=== PATIENT | female | born 1965 | race Hispanic/Latino ===

== ENCOUNTER 2020-01-17 13:35 | Emergency (ER) | payer MEDICAID ==
[2020-01-17 14:13] LABS: BASOPHILS % (AUTO) 0.7 % (0.0-5.0); EOSINOPHILS % (AUTO) 4.5 % (0.0-8.0); HEMATOCRIT 39.4 % (36-48); LYMPHOCYTES % (AUTO) 18.8 % (21.0-51.0); MEAN CORPUSCULAR HEMOGLOBIN 26.9 pg (27.0-33.0); MEAN CORPUSCULAR HGB CONC 32.5 g/dL (32.0-36.0); MEAN CORPUSCULAR VOLUME 82.9 fL (79-99); MONOCYTES % (AUTO) 9.6 % (3.0-13.0); NEUTROPHILS % (AUTO) 66.2 % (40.0-77.0); PLATELET COUNT (AUTO) 300 K/uL (130-400); RED BLOOD CELL COUNT(AUTO) 4.75 MIL/uL (4.00-5.50); RED CELL DISTRIBUTION WIDTH 13.2 % (11.0-15.5); WHITE BLOOD COUNT (AUTO) 8.3 K/uL (4.8-10.8)
[2020-01-17 14:32] LABS: INR 0.94 (0.85-1.15); PARTIAL THROMBOPLASTIN TIME 24.1 SEC (26.3-35.5); PROTHROMBIN TIME 9.9 SEC (9.6-11.6)
[2020-01-17 14:38] LABS: CREATININE 0.5 mg/dL (0.5-1.5); POTASSIUM 4.6 mmol/L (3.5-5.1)
[2020-01-17 14:43] LABS: B-TYPE NATRIURETIC PEPTIDE 33 pg/mL (0-100)
[2020-01-17 14:44] LABS: ALBUMIN 3.5 g/dL (3.5-5.0); BILIRUBIN,TOTAL 0.7 mg/dL (0.2-1.0); TOTAL PROTEIN, SERUM 7.5 g/dL (6.0-8.3)
[2020-01-17 14:58] LABS: APPEARANCE,URINE Cloudy (CLEAR); BILIRUBIN,URINE Negative (NEGATIVE); COLOR,URINE Yellow (YELLOW); GLUCOSE, URINE (UA) 500 mg/dL (NEGATIVE); KETONES,URINE Negative (NEGATIVE); LEUKOCYTE ESTERASE ,URINE Large (NEGATIVE); NITRATE,URINE Negative (NEGATIVE); OCCULT BLOOD,URINE Negative (NEGATIVE); PH,URINE 5.5 (5.0-8.0); PROTEIN,URINE Negative (NEGATIVE)
[2020-01-17 15:07] LABS: AMPHET/METH SCREEN,URINE NEGATIVE (NEGATIVE); BARBITURATE SCREEN, URINE NEGATIVE (NEGATIVE); BENZODIAZEPINES SCREEN,URINE NEGATIVE (NEGATIVE); CANNABINOID SCREEN,URINE NEGATIVE (NEGATIVE); COCAINE SCREEN,URINE NEGATIVE (NEGATIVE); OPIATE SCREEN,URINE NEGATIVE (NEGATIVE); PHENCYCLIDINE SCREEN,URINE NEGATIVE (NEGATIVE)
[2020-01-17 15:44] LABS: RBC,URINE 0-1 /HPF (0-1)
[2020-01-17 15:45] LABS: BACTERIA,URINE Moderate /HPF (None Seen); SQUAMOUS EPITHELIAL CELL,UR Few /HPF (0-2)
[2020-01-17] MEDS ORDERED: DIPHENHYDRAMINE HCL 25 MG CAPSULE ONE (16:45)
[2020-01-17] MEDS ORDERED: NAPROXEN 500 MG TABLET ONE (16:45)
[2020-01-17] MEDS ORDERED: GUAIFENESIN-DM 200/20 MG 10 ML ONE (16:45)
== END 2020-01-17 17:06 | disposition home or self-care (01) ==
LOC: EDH 13:35
DX: S80.11XA Contusion of right lower leg, initial encounter (principal); S09.90XA Unspecified injury of head, initial encounter; J01.80 Other acute sinusitis; I10 Essential (primary) hypertension; J45.909 Unspecified asthma, uncomplicated; Z98.890 Other specified postprocedural states; Z88.6 Allergy status to analgesic agent; W18.00XA Striking against unspecified object with subsequent fall, initial encounter; Y93.89 Activity, other specified; Y92.89 Other specified places as the place of occurrence of the external cause; Y99.8 Other external cause status
CPT/HCPCS: 36415; 70450; 73030; 73080; 73110; 73590; 80053; 80305; 81001; 82550; 83880; 84484; 85025; 85610; 85730; 93005; 99285; Q0163

== ENCOUNTER 2021-12-24 17:01 | Emergency (ER) | payer MEDICAID ==
[~2021-12-24] VITALS: Ht 160 cm; Wt 107.5 kg
[2021-12-24 17:06] VITALS: BP 139/73
[2021-12-24] MEDS ORDERED: FLUORESCEIN SODIUM 1 STRIP STRIP ONE (17:44)
[2021-12-24] MEDS ORDERED: TETRACAINE HCL 0.5% 4 ML OPHTH SOLN ONE (17:45)
[2021-12-24] MEDS ORDERED: TETRACAINE HCL 0.5% 4 ML OPHTH SOLN OP SCH (18:00)
[2021-12-24] MEDS ORDERED: NEO/5DRO4 OP (18:05)
[2021-12-24] MEDS ORDERED: TETANUS/DIPHTHERIA TOXOID [ADULT] 0.5 ML VIAL IM ONE ×2 (18:15→18:30)
== END 2021-12-24 18:53 | disposition home or self-care (01) ==
LOC: EDH 17:01
DX: S05.02XA Injury of conjunctiva and corneal abrasion without foreign body, left eye, initial encounter (principal); I10 Essential (primary) hypertension; Z88.5 Allergy status to narcotic agent; E78.00 Pure hypercholesterolemia, unspecified; Z90.49 Acquired absence of other specified parts of digestive tract; X58.XXXA Exposure to other specified factors, initial encounter; Y93.89 Activity, other specified; Y92.89 Other specified places as the place of occurrence of the external cause; Y99.8 Other external cause status
CPT/HCPCS: 90471; 90714

== ENCOUNTER → 2025-01-14 | Outpatient (CLI) | payer MEDICAID ==
[~2025-01-14] MED LIST: NEO/5DRO4 OP
[2025-01-14 12:26] LABS: ALBUMIN 3.5 g/dL (3.5-5.0); BILIRUBIN,TOTAL 0.7 mg/dL (0.2-1.0); CREATININE 0.5 mg/dL (0.5-1.0); POTASSIUM 4.6 mmol/L (3.5-5.1); TOTAL PROTEIN, SERUM 6.8 g/dL (6.0-8.3)
== END | disposition home or self-care (01) ==
LOC: LAB 09:16
PROVIDERS: ATTEND Student in an Organized Health Care Education/Training Program
DX: E78.2 Mixed hyperlipidemia (principal); Z82.49 Family history of ischemic heart disease and other diseases of the circulatory system
CPT/HCPCS: 36415; 80053; 80061

== ENCOUNTER 2025-08-04 17:20 | Inpatient (IN) | payer MEDICAID ==
[~2025-08-04] VITALS: Ht 160 cm; Wt 97.9 kg
[2025-08-04 18:09] LABS: IMMATURE GRANULOCYTE ABSOLUTE 0.01 K/uL (0-1); NUCLEATED RED BLOOD CELLS 0.0 % (0.0-0.19); PLATELET COUNT (AUTO) 259 K/uL (130-400); RED BLOOD CELL COUNT(AUTO) 4.30 MIL/uL (4.00-5.50); RED CELL DISTRIBUTION WIDTH 13.2 % (11.0-15.5); WHITE BLOOD COUNT (AUTO) 6.1 K/uL (4.8-10.8)
--- NOTE | 2025-08-04 18:20 | ERN ---
ED Note History of Present Illness Stated Complaint: CP, N/V Chief Complaint: Chest Pain Time Seen by MD: 17:29 Time Seen by Midlevel: 17:29 Dictation: The patient is a 59-year-old female with a history of hypertension, CAD, diabetes who presents to the emergency department with complaints of chest pressure onset Saturday. Patient reports that she was exacerbated by going up the stairs carrying some toilet paper pack when she develop severe chest pain associated with diaphoresis, nausea and vomiting. Patient reports that since then she has been having the chest pressure which has been constant. Reports that she is scheduled to get a cardiac stent with Dr. Salomon kitchen on Saturday. Patient reports she has 80-90% stenosis to LAD Allergies: Coded Allergies: codeine (Unverified Allergy, Unknown, 12/24/21) Home Meds Active Scripts Gorge/Polymyx B Sulf/Dexameth (Maxitrol Eye Drops) 5 Ml Drops.susp, 5 ML OP TID for 5 Days, #30 DROP Prov:BOOGIE KAUR MD 12/24/21 Past Medical History Past Medical History: Asthma, High Cholesterol, Heart Disease, Hypertension Surgical History: Hysterectomy, Cholecystectomy, Surgical History Other: BILATERAL EYES, HERNIA, BACK RN Note Reviewed/Agreed w/PFSH: Yes Review of System Dictation Constitutional: Negative for fever,chills, and weight loss Eyes: Negative for injury, pain,redness, and discharge ENT: Negative for injury,pain or swelling Cardiovascular: Negative for palpitations, and edema positive for chest pain Respiratory: Negative for shortness of breath, cough, and wheezing, Abdomen/GI: Negative for abdominal pain,, diarrhea, and constipation positive for nausea and vomiting Back: Negative for injury and pain : Negative for injury, bleeding and discharge MS/Extremity: Negative for injury and deformity Skin: Negative for rash, and discoloration Neuro: Negative for headache, weakness, numbness, tingling, and seizure Psych: Negative for suicide ideation, homicidal ideation, and hallucinations Initial Vital Sign VS Vital Signs Date Time Temp Pulse Resp B/P (MAP) Pulse Ox O2 Delivery O2 Flow Rate FiO2 08/04/25 17:24 97.9 68 16 138/78 98 Room Air 0 Physical Exam Dictation Vital Signs reviewed General Appearance: Alert, oriented x 3, no acute distress, well developed, nourished. Head and Face: non-traumatic. Eyes: PERRL, pink conjunctivas, eyelid no trauma, anterior chamber with arcus senilis. Ears: Pinnas intact and no signs of trauma or erythema ear canals clear and no discharge TM no erythema Nose: No discharge, no bleeding. Oropharynx: Mouth normal, tongue pink. pharynx clear,no erythema, tonsils no exudates, no abscesses noted, mucous membrane moist Neck: Supple, non-tender, no thyromegaly, no masses, no JVD, no bruits Breast:Deferred Chest:No tenderness, no crepitus, no paradoxical movement, no retractions Lungs:Clear, well-ventilated, symmetric, no rales, no wheezing, no rhonchi, no stridor, good breath sounds bilaterally Heart: Regular rate, regular rhythm, no murmur, no gallops Vascular: no peripheral edema, Abdomen: Soft, positive bowel sounds, nondistended, no guarding, nontender, no rebound, no masses no hepatomegaly, no splenomegaly, no Guallpa's sign, no hernias. Rectal: Deferred Genital: Deferred Neurological: Normal speech, motor function intact, sensory function intact Musculoskeletal: Neck nontender, full range of motion, back nontender, full range of motion, Extremities: nontender, full range of motion Skin: Color pink, dry, no turgor, no rash, no lacerations, no abrasions, no contusions. Lymphatic: Deferred Results (Laboratory/Radiology) Laboratory/Radiology Laboratory Tests Test 08/04/25 17:45 08/04/25 19:20 White Blood Count 6.1 K/uL (4.8-10.8) Red Blood Count 4.30 MIL/uL (4.00-5.50) Hemoglobin 12.2 g/dL (12.0-16.0) Hematocrit 37.5 % (36-48) Mean Corpuscular Volume 87.2 fL (79-99) Mean Corpuscular Hemoglobin 28.4 pg (27.0-33.0) Mean Corpuscular Hemoglobin Concent 32.5 g/dL (32.0-36.0) Red Cell Distribution Width 13.2 % (11.0-15.5) Platelet Count 259 K/uL (130-400) Mean Platelet Volume 9.2 fL (7.5-10.5) Immature Granulocyte % (Auto) 0.2 % (0-1) Neutrophils (%) (Auto) 55.5 % (40.0-77.0) Lymphocytes (%) (Auto) 30.7 % (21.0-51.0) Monocytes (%) (Auto) 8.7 % (3.0-13.0) Eosinophils (%) (Auto) 3.8 % (0.0-8.0) Basophils (%) (Auto) 1.1 % (0.0-5.0) Neutrophils # (Auto) 3.4 K/uL (1.8-7.7) Lymphocytes # (Auto) 1.9 K/uL (1.0-4.8) Monocytes # (Auto) 0.5 K/uL (0.1-1.0) Eosinophils # (Auto) 0.23 K/uL (0.00-0.70) Basophils # (Auto) 0.07 K/uL (0.00-0.20) Absolute Immature Granulocyte (auto 0.01 K/uL (0-1) Nucleated Red Blood Cells 0.0 % (0.0-0.19) Prothrombin Time 10.4 SEC (9.6-11.6) Prothromb Time International Ratio 0.98 (0.85-1.15) Activated Partial Thromboplast Time 25.0 SEC (26.3-35.5) L Sodium Level 140 mmol/L (136-145) Potassium Level 3.5 mmol/L (3.5-5.1) Chloride Level 105 mmol/L (101-111) Carbon Dioxide Level 29 mmol/L (21-32) Blood Urea Nitrogen 9 mg/dL (7-18) Creatinine 0.5 mg/dL (0.5-1.0) Glomerular Filtration Rate Calc 107 mL/min (>90) Random Glucose 89 mg/dL (70-105) Total Calcium 8.7 mg/dL (8.5-10.1) Troponin I High Sensitivity 4 ng/L (4-50) 4 ng/L (4-50) B-Type Natriuretic Peptide 102 pg/mL (0-100) H Lipase 25 U/L (16-77) REASON: CP ORDERING PHYSICIAN: ALEXY CAMPOS MD PROCEDURE: CXR1VW - CHEST 1VW CLINICAL INFORMATION Chest pain COMPARISON None. TECHNIQUE Frontal view chest. FINDINGS Lines and tubes: None Lungs: Clear. Pleura: Unremarkable. No effusion or pneumothorax. Cardiomediastinal Silhouette: Unremarkable. Bones: Normal for age. Soft Tissues: Cholecystectomy clips, otherwise normal. IMPRESSION No acute pulmonary findings. /[facility] Labs Reviewed?: Yes EKG: (+) rhythm (Sinus rhythm) EKG Comment: Date:08/04/2025 Time:1729 Ventricular rate:76 NH interval:180 QRS duration:154 QT/QTc:478/478 EKG interpretation: Sinus rhythm, right bundle-branch block Reviewed by ED Attending no STEMI ED Course ED Course Orders Procedure Category Date Status Time Cbc With Differential LAB 08/04/25 Complete 17:39 Basic Metabolic Panel LAB 08/04/25 Complete 17:39 12 Lead Ekg Tracing- EKG 08/04/25 Logged Technical 17:39 Troponin I High LAB 08/04/25 Complete Sensitivity 17:39 B-Type Natriuretic LAB 08/04/25 Complete Peptide 17:39 Chest 1vw RAD 08/04/25 Resulted 17:39 Pt And Ptt LAB 08/04/25 Complete 17:51 Nitroglycerin 1gm PHA 08/04/25 Complete Oint (Nitroglycerin 1g 18:00 Aspirin 325mg Tab PHA 08/04/25 Complete (Aspirin 325mg Tab) 18:00 Pantoprazole 40mg Inj PHA 08/04/25 Complete (Protonix 40mg Inj 18:00 Lipase LAB 08/04/25 Complete 17:39 Troponin I High LAB 08/04/25 Complete Sensitivity 19:09 Edm Admit Bridge Order ADM 08/04/25 Transmitted 20:25 Current Medications Medications (Trade) Dose Ordered Sig/Latasha Route PRN Reason Start Time Stop Time Status Last Admin Dose Admin Aspirin (Aspirin 325mg Tab) 325 mg ONCE ONCE PO 08/04/25 18:00 08/04/25 18:01 DC 08/04/25 20:05 Nitroglycerin (Nitroglycerin 1gm Oint) 1 inch ONCE ONCE TD 08/04/25 18:00 08/04/25 18:01 DC 08/04/25 20:05 Pantoprazole Sodium (PROTonix 40MG INJ) 40 mg ONCE ONCE IVP 08/04/25 18:00 08/04/25 18:01 DC 08/04/25 20:06 Vital Signs Date Time Temp Pulse Resp B/P (MAP) Pulse Ox O2 Delivery O2 Flow Rate FiO2 08/04/25 17:24 97.9 68 16 138/78 98 Room Air 0 HEART Score Response (Comments) Value History: High suspicion (+2) 2 EKG: Normal 0 Age: 45-65yrs (+1) 1 Risk Factors: 3+ risk factors (+2) 2 Initial Troponin: Normal limit (0) 0 Total 5 Medical Decision Making MDM MDM: The patient is a 59-year-old female with a history of hypertension, CAD, diabetes who presents to the emergency department with complaints of chest pressure onset Saturday. Patient reports that she was exacerbated by going up the stairs carrying some toilet paper pack when she develop severe chest pain associated with diaphoresis, nausea and vomiting. Patient reports that since then she has been having the chest pressure which has been constant. Reports that she is scheduled to get a cardiac stent with Dr. Salomon kitchen on Saturday.Patient reports she has 80-90% stenosis to LAD CBC showed no leukocytosis, no anemia, chemistry showed no electrolyte imbalance, negative troponin x2, negative BNP, chest x-ray showed no acute pathology. Given patient's history of CAD in continues chest pain we will admit to the hospital to be evaluated by plate conditioner. Patient is p scheduled for a catheterization with stent placement on Saturday. Differential diagnosis: ACS, unstable angina, gastritis, electrolyte imbalance, costochondritis Comorbidities: CAD, hypertension, diabetes Tests considered and not ordered secondary to shared decision making include: none Previous outside records reviewed: none Risk of complication and/or morbidity or mortality of patient management: The patient meets criteria for admission. Need for emergency major/minor surgery: No There are no social concerns with this patient. I independently interpreted the tests I ordered (labs, urinalysis, etc.). I discussed the case with the hospitalist for admission. [facility] who accepts admission I discussed the case with the following specialists: none. Historian: pateint. I independently interpreted imaging studies and EKGs that I ordered (US, CT, XR, EKG, etc.). External chart review: none. Medical management and examination interpretation discussions were had by me with other qualified healthcare professionals as indicated for the patient's care. DX & DISP Disposition: Inpatient Decision to Admit Date: Aug 04, 2025 Decision to Admit Time: 20:29 Departure Impression: Primary Impression: Unstable angina Additional Impression: Chest pain Condition: Stable Referrals: JORJE MATTHEW (PCP) I have reviewed the case, and I agree with, Diagnosis and Plan CECILIO PARK Aug 04, 2025 18:20
[2025-08-04 18:21] LABS: CREATININE 0.5 mg/dL (0.5-1.0); GLOMERULAR FILTR. RATE CALC 107.0 mL/min (>90); GLUCOSE,RANDOM 89.0 mg/dL (70-105); SODIUM SERUM 140.0 mmol/L (136-145); UREA NITROGEN, BLOOD 9.0 mg/dL (7-18)
[2025-08-04 18:44] LABS: INR 0.98 (0.85-1.15)
[2025-08-04] MEDS: NITROGLYCERIN 1GM OINT 1 INCH/1GM TD ONE (20:05)
[2025-08-04] MEDS: ASPIRIN 325MG TAB PO ONE (20:05)
--- NOTE | 2025-08-04 20:08 | HMCIMG ---
CLINICAL INFORMATION Chest pain COMPARISON None. TECHNIQUE Frontal view chest. FINDINGS Lines and tubes: None Lungs: Clear. Pleura: Unremarkable. No effusion or pneumothorax. Cardiomediastinal Silhouette: Unremarkable. Bones: Normal for age. Soft Tissues: Cholecystectomy clips, otherwise normal. IMPRESSION No acute pulmonary findings. /[place]
--- NOTE | 2025-08-04 20:47 | HP ---
[facility] PH[facility] Date of Service: Aug 04, 2025 Time of Service: 20:46 PCP:Natalie Pittman HISTORY OF PRESENT ILLNESS: This is a 59-year-old female with past medical history of hypertension, diabetes, hyperlipidemia, asthma and coronary artery disease who presents to the ED for complaints of chest pain located around midsternal chest pain was described as sharp and burning sensation started Saturday and was exacerbated by activity associated with diaphoresis,mild shortness of breath and nausea and vomiting.Patient states she had been seen by a tdp displays analyst and had a cardiac work up and was told she has a 90% blockage on her LAD and the plan was to do a cardiac catheterization this coming Saturday.Patient reports she had been having on and off chest pain for the past 2 months and reason why she was referred by her PCP to a cardio and last Saturday it came back back and since then she has been having chest pain and radiates towards her neck so she decided to come to the ED because her mother and 3 brothers dis of a heart attack.Patient states her tdp displays analyst is Dr.Danielle kitchen and the tdp displays analyst that would do the cath will be Dr.James kitchen she said.Patient denies fever,palpitation ,abdominal pain and diarrhea. Vital signs upon ER arrival temperature 97.9, heart rate 68, blood pressure 138/78, saturation 98% on room air. Labs: CBC and chemistry are unremarkable. Troponin four x 3. ECG result revealed sinus rhythm heart rate 76 with right bundle branch block and left anterior fascicular block. Chest x-ray result revealed no acute pulmonary findings. While in the ER patient received aspirin 325 mg p.o., nitroglycerin 1 in topical, Protonix 40 mg IV. We will admit patient for further medical management. REVIEW OF SYSTEMS CONSTITUTIONAL: Denies fevers, chills, or night sweats. No unintentional weight loss reported. NEUROLOGICAL: Denies headache, amaurosis fugax, motor weakness, sensory deficit, vertigo/spinning sensation, gait abnormalities, or tremors. ENT: No hearing loss, otalgia, otorrhea, rhinitis, rhinorrhea, hoarseness, or sore throat. CARDIOVASCULAR: Complain of midsternal chest pain that radiates to neck Denies orthopnea, paroxysmal nocturnal dyspnea, palpitations, life-threatening arrhythmias, claudication. PULMONARY: Complain of shortness of breaths on exertion Denies cough, phlegm/sputum, hemoptysis, pleuritic chest pain. SLEEP: Denies morning headaches, daytime somnolence or napping. Denies difficulty falling asleep, staying asleep, waking from sleep. Denies knowledge of snoring. GASTROINTESTINAL: Complains of nausea and vomiting Denies any type of dysphagia to either liquids or solids. Denies pyrosis, early satiety, abdominal pain, diarrhea, constipation, or changes in stool consistency or caliber. Denies coffee-ground emesis, hematemesis, hematochezia, or melanotic stools. GENITOURINARY: Denies frequency, urgency, nocturia, hematuria or incontinence (Storage/Irritative symptoms.) Low urinary stream, straining to void, urinary intermittency or hesitancy, splitting of the voiding stream, terminal dribbling. ENDOCRINOLOGIC: Denies polyuria, polydipsia, polyphagia or heat/cold intolerances. HEMATOLOGIC: Denies thrombophilia/previous clots, or coagulopathy/bleeding disorders. ONCOLOGIC: Denies personal history of malignancy. DERMATOLOGIC: Denies rashes or pruritus. PSYCHIATRIC: Denies any suicidal or homicidal ideation. Denies hallucinations. PAST MEDICAL HISTORY: [Hypertension, diabetes, hyperlipidemia, asthma and coronary artery disease ] PAST SURGICAL HISTORY: [ x3, hysterectomy, cholecystectomy back surgery, bilateral eye surgery ] PAST SOCIAL HISTORY: [ Patient lives with grandson. Patient denies alcohol tobacco and recreational drug use] FAMILY HISTORY: [ Mother and three brothers of heart attack ] Coded Allergies: codeine (Unverified Allergy, Unknown, 12/24/21) PHYSICAL EXAM GENERAL APPEARANCE: The patient is awake, alert, and oriented, in no acute cardiopulmonary distress. NEUROLOGICAL: Cranial nerves II-XII grossly intact. Motor is 5/5 in bilateral upper and lower extremities proximal to distal. No sensory deficits. HEENT: Face is symmetric. Pupils are equal and reactive. Extraocular movements are intact. NECK: Supple. No JVD. No thyromegaly. No submental, submandibular, pre-/postau ricular, occipital or supraclavicular lymphadenopathy. CHEST: Normal chest expansion. No Telemetry. LUNGS: Absence of any rales, rhonchi or any wheezing. CARDIOVASCULAR: Regular. S1 and S2 normal. No appreciable rubs, murmurs or gallops. ABDOMEN: Soft, nontender, and nondistended. There is no rebound, voluntary guarding, or rigidity. : Deferred. No Hammer. EXTREMITIES: Non-edematous and not cyanotic. No clubbing. Good capillary refill. SKIN: No skin breakdown. Vital Sign (Last 24 Hours) 08/04/25 17:24 Temp 97.9 Pulse 68 Resp 16 B/P (MAP) 138/78 Pulse Ox 98 O2 Delivery Room Air O2 Flow Rate 0 LABS: Laboratory: Test 08/04/25 19:20 08/04/25 17:45 Range/Units Troponin I High Sensitivity 4 4-50 ng/L White Blood Count 6.1 4.8-10.8 K/uL Red Blood Count 4.30 4.00-5.50 MIL/uL Hemoglobin 12.2 12.0-16.0 g/dL Hematocrit 37.5 36-48 % Mean Corpuscular Volume 87.2 79-99 fL Mean Corpuscular Hemoglobin 28.4 27.0-33.0 pg Mean Corpuscular Hemoglobin Concent 32.5 32.0-36.0 g/dL Red Cell Distribution Width 13.2 11.0-15.5 % Platelet Count 259 130-400 K/uL Mean Platelet Volume 9.2 7.5-10.5 fL Immature Granulocyte % (Auto) 0.2 0-1 % Neutrophils (%) (Auto) 55.5 40.0-77.0 % Lymphocytes (%) (Auto) 30.7 21.0-51.0 % Monocytes (%) (Auto) 8.7 3.0-13.0 % Eosinophils (%) (Auto) 3.8 0.0-8.0 % Basophils (%) (Auto) 1.1 0.0-5.0 % Neutrophils # (Auto) 3.4 1.8-7.7 K/uL Lymphocytes # (Auto) 1.9 1.0-4.8 K/uL Monocytes # (Auto) 0.5 0.1-1.0 K/uL Eosinophils # (Auto) 0.23 0.00-0.70 K/uL Basophils # (Auto) 0.07 0.00-0.20 K/uL Absolute Immature Granulocyte (auto 0.01 0-1 K/uL Nucleated Red Blood Cells 0.0 0.0-0.19 % Prothrombin Time 10.4 9.6-11.6 SEC Prothromb Time International Ratio 0.98 0.85-1.15 Activated Partial Thromboplast Time 25.0 L 26.3-35.5 SEC Sodium Level 140 136-145 mmol/L Potassium Level 3.5 3.5-5.1 mmol/L Chloride Level 105 101-111 mmol/L Carbon Dioxide Level 29 21-32 mmol/L Blood Urea Nitrogen 9 7-18 mg/dL Creatinine 0.5 0.5-1.0 mg/dL Glomerular Filtration Rate Calc 107 >90 mL/min Random Glucose 89 70-105 mg/dL Total Calcium 8.7 8.5-10.1 mg/dL B-Type Natriuretic Peptide 102 H 0-100 pg/mL Lipase 25 16-77 U/L DIAGNOSTICS / RADIOLOGY: [ ] ASSESSMENT: Chest pain rule out ACS POA Coronary artery disease POA Hypertension POA Obesity POA Hyperlipidemia POA PLAN: We will admit patient in PCCU We will start on heart healthy diet We will start on aspirin 81 mg p.o. daily We will start on Protonix 40 mg IV daily for GI prophylaxis We will start on atorvastatin 40 mg p.o. HS We will start on Lovenox 40 mg subQ daily for DVT prophylaxis We will trend troponin q.6 x3 We will order EKG p.r.n. chest pain We will seek Cardiology consultation We will replace electrolytes as needed per protocol We will add prn medication for fever,pain,cough , nausea and vomiting We will reconcile home meds once medlist available We will request labs in am Further orders to follow depending on above results Case discussed with attending physician and came up with above treatment and plan of care. ADVANCED CARE PLANNING 1. Which of the following were discussed? Hospice Care - No Therapeutic options - Yes Advance Directives - No Other discussions - 2. Discussed with who? Patient 3. Voluntary nature of this service was explained to the patient? Yes 4. Amount of time spent - ___25 min____ 5. Reviewed by Physician? (if this service was performed by NPP) Yes Patient seen and examined by me. Agree with note by MEDICAL REGISTRAR SEE ADDITIONAL ORDERS PER CHART DISCUSSED WITH NURSING STAFF KIKO ALCOCER Aug 04, 2025 20:47
--- NOTE | 2025-08-04 20:57 | NUR ---
[facility] SUPPL[employer] NURSE AT BEDSIDE.
[2025-08-04] MEDS: NITROGLYCERIN 1GM OINT 1 INCH/1GM TD SCH (22:44)
--- NOTE | 2025-08-04 22:58 | NUR ---
DR Ann JAMES CALLED FOR CONSULT INSTRUCTED TO HAVE EXHAUST EQUIPMENT OPERATOR CALL HIM FOR URGENT CONSULTS, NUMBER GIVEN TO EXHAUST EQUIPMENT OPERATOR.
[2025-08-04 23:15] VITALS: BP 158/77; PULSE 75; RESP 18; TEMP 98; O2SAT 98
[2025-08-05] VITALS (9 sets, daily range): BP systolic 108–131; BP diastolic 52–72; PULSE 63–78; RESP 18–20; TEMP 97.6–98.1; O2SAT 97–98
[2025-08-05 05:11] LABS: IMMATURE GRANULOCYTE ABSOLUTE 0.02 K/uL (0-1); NUCLEATED RED BLOOD CELLS 0.0 % (0.0-0.19); PLATELET COUNT (AUTO) 244 K/uL (130-400); RED BLOOD CELL COUNT(AUTO) 3.96 MIL/uL (4.00-5.50); RED CELL DISTRIBUTION WIDTH 13.2 % (11.0-15.5); WHITE BLOOD COUNT (AUTO) 5.6 K/uL (4.8-10.8)
[2025-08-05] MEDS ORDERED: ATOR20TA65 PO (05:34)
[2025-08-05] MEDS ORDERED: MONT-47 PO (05:34)
[2025-08-05] MEDS ORDERED: TIRZ15PE SQ (05:34)
[2025-08-05] MEDS ORDERED: PANT40TA54 PO (05:36)
[2025-08-05 05:37] LABS: ASPARTATE AMINOTRANSFERASE 18.0 U/L (10-37); CREATINE KINASE, TOTAL 39.0 U/L (21-232); CREATININE 0.7 mg/dL (0.5-1.0); ERYTHROCYTE SEDIMENTATION RATE 5 MM/HR (0-30); GLOMERULAR FILTR. RATE CALC 99.0 mL/min (>90); GLUCOSE,RANDOM 78.0 mg/dL (70-105); LDL DIRECT 41.0 mg/dL (0-99); SODIUM SERUM 141.0 mmol/L (136-145); TOTAL PROTEIN, SERUM 5.7 g/dL (6.0-8.3); UREA NITROGEN, BLOOD 7.0 mg/dL (7-18)
[2025-08-05] MEDS ORDERED: LISI10TA24 PO (05:37)
[2025-08-05] MEDS ORDERED: ASPI-1443 PO (05:38)
[2025-08-05] MEDS ORDERED: VITAD50000 PO (05:43)
[2025-08-05] MEDS ORDERED: BUDE10.2 IH (05:46)
[2025-08-05] MEDS ORDERED: ALBU18HF7 IH (05:47)
[2025-08-05] MEDS ORDERED: PoTASSium chl 10% ELIXIR 20MEQ 20 MEQ/15 ML UDCUP PO PRN (06:00)
[2025-08-05] MEDS: PoTASSium chloRIDE 20MEQ ER 20 MEQ ERTAB PO PRN (06:28)
--- NOTE | 2025-08-05 06:36 | EKG ---
[facility] Test Date: 2025-08-04 Test Time: 17:29:00 Pat Name: PADMINI SO Department: [facility] Room: 229 1 Gender: F Anthropology Faculty Member: [id number] : 1965 Requested By: ALEXY CAMPOS Order Number: [id number] Reading MD: Arnel Carranza Measurements Intervals [place] Rate: 76 P: 5 KS: 180 QRS: -50 QRSD: 154 T: 2 QT: 425 QTc: 478 Interpretive Statements Sinus rhythm RBBB and LAFB Compared to ECG 01/17/2020 13:48:57 Right bundle-branch block now present Poor R-wave progression no longer present Electronically Signed On 08-05-2025 18:19:18 CDT by Arnel Carranza Please click the below link to view image of tracing.
[2025-08-05] MEDS: ENOXAPARIN SODIUM 40 MG/0.4 ML SYRINGE SQ SCH (08:35)
[2025-08-05] MEDS: ASPIRIN 81 MG EC TAB PO SCH (08:35)
--- NOTE | 2025-08-05 09:17 | NUR ---
DCP: HOME Sw met with pt and Marty Gan [phone]. Couple lives in home they own, no issues at this time affording home. Pt states sometimes she needs assistance with ADLS, and provider will assist. She has provider 3hrs a day to help with meal prep, cleaning and cooking thru [employer]. Pt uses no HH HD or DME at this time. PCP is Jessica Poole and uses [facility] rx. Pt denies she needs SNF, wants to return home a dc. Addendum: 08/05/25 at 0921 by BRODY ROSARIO Amended: Links added.
[2025-08-05] MEDS: ALBUTEROL 0.083% 2.5 MG/3 ML INH IH PRN (11:49)
--- NOTE | 2025-08-05 11:58 | CONS ---
[facility] CARDIOLOGY CONSULTATION REPORT Cardiology consultation note dictated for Arnel Carranza MD Primary health program director: Teresa Goyal MD Date Patient Seen: Aug 05, 2025 Requesting Physician: PRINCESS Sauceda Reason for Consultation: [place] History of Present Illness: This is a 59-year-old female with a past medical history of hypertension, hyperlipidemia, type 2 diabetes mellitus, chronic RBBB, coronary CTA on 05/14/2025 revealed proximal LAD with 80-90% stenosis, 30-40% stenosis in the proximal D1 with a CAD-RADs: 4A indicating severe stenosis with planned coronary angiogram on 08/09/2025 and asthma who presented to the ED with complaints of chest pain. Cardiology has been consulted for unstable angina. The patient endorsed on Saturday she was helping her granddaughter move into her apartment, and on her 3rd flight of stairs, she became fatigued, diaphoretic, began to vomit and shake. She sat down to rest and symptoms subsided. Since then, she has been having intermittent left sternal chest tightness that can radiate to her back and jaw at times with accompanying symptoms of nausea and fatigue. There were no aggravating factors. Relieving factor is rest. Cardiac enzymes have been negative x4. EKG on admission demonstrated normal sinus rhythm with a heart rate of 76bpm, RBBB, and LAFB, no acute ischemia noted. Past Medical History: As per HPI and summarized below Past Surgical History: Eye surgery x2 Back surgery section Ovarian surgery Hysterectomy Cholecystectomy Carpal tunnel Gastric bypass Hernia repair x3 Family History: The patient's mother had diabetes mellitus type 2 and a myocardial infarction. The patient's sibling had a myocardial infarction. Social History: The patient lives with her grandson. Habits: The patient denies alcohol, tobacco, or illicit drug use. Home Meds: Aspirin 81 mg daily Atorvastatin 20 mg nightly Lisinopril 10 mg daily Singulair 10 mg daily Pantoprazole 40 mg daily Mounjaro 15 mg subcu weekly Vitamin D3 06146 units weekly Symbicort 160-4.5 mcg inhaled 1 puff b.i.d. Albuterol sulfate 90 mcg, 2 puffs inhaled every 4 hours p.r.n. Current Meds: Medications Dose Ordered Sig/[place] Start Time Stop Time Status Last Admin Acetaminophen 650 mg Q6H PRN 08/04/25 21:30 09/03/25 21:29 Acetaminophen 650 mg Q4H PRN 08/04/25 21:30 09/03/25 21:29 Ondansetron HCl 4 mg Q6H PRN 08/04/25 21:30 09/03/25 21:29 Nitroglycerin 0.5 inch Q8H 08/04/25 21:30 09/03/25 21:29 08/05/25 06:27 Enoxaparin Sodium 40 mg DAILY 08/05/25 09:00 09/04/25 08:59 08/05/25 08:35 Morphine Sulfate 2 mg Q4H PRN 08/04/25 21:30 08/11/25 21:29 Pantoprazole Sodium 40 mg DAILY 08/05/25 09:00 09/04/25 08:59 08/05/25 08:35 Aspirin 81 mg DAILY 08/05/25 09:00 09/04/25 08:59 08/05/25 08:35 Atorvastatin Calcium 40 mg HS 08/05/25 21:00 09/04/25 20:59 Potassium Chloride 100 ml @ 100 mls/hr AD PRN 08/05/25 06:00 09/04/25 05:59 Potassium Chloride 20 meq AD PRN 08/05/25 06:00 09/04/25 05:59 Potassium Chloride 20 meq AD PRN 08/05/25 06:00 09/04/25 05:59 08/05/25 06:28 Lisinopril 10 mg DAILY 08/05/25 09:00 09/04/25 08:59 Montelukast Sodium 10 mg DAILY 08/05/25 09:00 09/04/25 08:59 Albuterol Sulfate 2.5 mg Q4HPRN PRN 08/05/25 09:00 09/04/25 08:59 Review of Systems: CONST: No fever, fatigue, or weight changes. EYES: No recent vision problems. ENT: No congestion, ear pain, or sore throat. C/V: No chest pain, palpitations, or edema. RESP: No cough, congestion, wheezing or shortness of breath. GI: No abdominal pain, nausea, vomiting, constipation, or diarrhea. : No incontinence or dysuria. SKIN: No rash. NEURO: No headache, focal numbness or weakness, dizziness, or seizures. PSYCH: No depression or anxiety. HEME: No abnormal bruising or bleeding. LYMPH: No swollen glands. Physical Examination: GENERAL: No acute distress. HEAD: Normal with no signs of head trauma. EYES: PERRLA, EOMI, conjunctiva and sclera normal. ENT: Hearing grossly intact, normal oropharynx. NECK: Supple without JVD. There is no tenderness, lymphadenopathy, or masses. No thyromegaly. Normal carotid upstrokes without bruits. LUNGS: Clear breath sounds bilaterally. No wheezes, or rhonchi. HEART: Normal rate and rhythm. Normal S1 and S2 without murmurs, gallop or rub. VASC: Peripheral pulses +2 bilaterally. ABD: Bowel sounds normal, soft, nontender, no masses, no organomegaly. No audible bruits. : Not examined LYMPH: No lymphadenopathy noted. EXT: No clubbing, cyanosis or edema. SKIN: No rashes or lesions noted. NEURO: Awake, alert, and oriented x3. No focal sensory or strength deficits noted. Vital Signs (last 8hr) Date Time Temp Pulse Resp B/P (MAP) Pulse Ox O2 Delivery O2 Flow Rate FiO2 08/05/25 11:05 98 Room Air* 0 21 08/05/25 07:41 97.9 70 18 124/72 100 Room Air 08/05/25 04:00 98.1 63 18 121/65 99 Room Air 2.0 Laboratory: Hematology Labs: Test 08/05/25 04:08 Range/Units White Blood Count 5.6 4.8-10.8 K/uL Red Blood Count 3.96 L 4.00-5.50 MIL/uL Hemoglobin 11.6 L 12.0-16.0 g/dL Hematocrit 33.8 L 36-48 % Mean Corpuscular Volume 85.4 79-99 fL Mean Corpuscular Hemoglobin 29.3 27.0-33.0 pg Mean Corpuscular Hemoglobin Concent 34.3 32.0-36.0 g/dL Red Cell Distribution Width 13.2 11.0-15.5 % Platelet Count 244 130-400 K/uL Mean Platelet Volume 9.5 7.5-10.5 fL Immature Granulocyte % (Auto) 0.4 0-1 % Neutrophils (%) (Auto) 45.1 40.0-77.0 % Lymphocytes (%) (Auto) 37.8 21.0-51.0 % Monocytes (%) (Auto) 10.5 3.0-13.0 % Eosinophils (%) (Auto) 4.9 0.0-8.0 % Basophils (%) (Auto) 1.3 0.0-5.0 % Neutrophils # (Auto) 2.5 1.8-7.7 K/uL Lymphocytes # (Auto) 2.1 1.0-4.8 K/uL Monocytes # (Auto) 0.6 0.1-1.0 K/uL Eosinophils # (Auto) 0.27 0.00-0.70 K/uL Basophils # (Auto) 0.07 0.00-0.20 K/uL Absolute Immature Granulocyte (auto 0.02 0-1 K/uL Nucleated Red Blood Cells 0.0 0.0-0.19 % Erythrocyte Sedimentation Rate 5 0-30 MM/HR Chemistry Labs: Test 08/05/25 04:08 08/04/25 17:45 Range/Units Sodium Level 141 136-145 mmol/L Potassium Level 3.7 3.5-5.1 mmol/L Chloride Level 107 101-111 mmol/L Carbon Dioxide Level 28 21-32 mmol/L Blood Urea Nitrogen 7 7-18 mg/dL Creatinine 0.7 0.5-1.0 mg/dL Glomerular Filtration Rate Calc 99 >90 mL/min Random Glucose 78 70-105 mg/dL Total Calcium 8.6 8.5-10.1 mg/dL Magnesium Level 2.00 1.80-2.40 mg/dL Total Bilirubin 0.9 0.2-1.0 mg/dL Aspartate Amino Transf (AST/SGOT) 18 10-37 U/L Alanine Aminotransferase (ALT/SGPT) 19 12-78 U/L Alkaline Phosphatase 84 50-136 U/L Total Creatine Kinase 39 # 21-232 U/L Troponin I High Sensitivity 5.4 4-50 ng/L Total Protein 5.7 L 6.0-8.3 g/dL Albumin 2.9 L 3.5-5.0 g/dL Triglycerides Level 58 30-200 mg/dL Cholesterol Level 104 <200 mg/dL LDL Cholesterol 41 0-99 mg/dL HDL Cholesterol 50 35-85 mg/dL Thyroid Stimulating Hormone (TSH) 0.18 L 0.36-3.74 uIU/mL Hemoglobin A1c 5.5 4.0-6.0 % Estimated Average Glucose (eAG) 111 70-126 mg/dL B-Type Natriuretic Peptide 102 H 0-100 pg/mL Lipase 25 16-77 U/L Coagulation Labs: Test 08/04/25 17:45 Range/Units Prothrombin Time 10.4 9.6-11.6 SEC Prothromb Time International Ratio 0.98 0.85-1.15 Activated Partial Thromboplast Time 25.0 L 26.3-35.5 SEC Diagnostics / Radiology: Impression and Plan: Unstable angina Hypertension Hyperlipidemia DM type 2 Chronic RBBB CCTA on 05/14/2025 revealed proximal LAD with 80-90% stenosis and 30-40% stenosis in the proximal D1 Asthma Unstable angina Cardiac enzymes negative x4 EKG demonstrated normal sinus rhythm with a heart rate of 76bpm, RBBB, and LAFB, no acute ischemia noted. -Continue aspirin 81 mg daily, atorvastatin 40 mg nightly, and lisinopril 10 mg daily -Start Lopressor 25mg bid -Obtain an echocardiogram to assess LV function and valvular pathology -Per Dr. Oliverio Goyal, the patient will likely have to wait until Saturday to undergo a coronary angiogram due to scheduling conflicts tomorrow BORIS BENITEZ Aug 05, 2025 11:58
[2025-08-05] MEDS: LISINOPRIL 10 MG TABLET PO SCH (12:19)
--- NOTE | 2025-08-05 13:25 | PN ---
[facility] PROGRESS NOTE Date of Service: Aug 05, 2025 Time of Service: 13:24 SUBJECTIVE: 08/05 remains admitted to the PCU, no acute events overnight per discussion with the RN, alert oriented x3 at the time of my visit, BP 128/72, afebrile, saturating normal on room air. Hemoglobin today 11.6, hematocrit 33.8. Patient denies no overt GI bleed, no evidence of melena, no hematochezia, no hematemesis. Cardiac enzymes x4 negative. Discussed with Cardiology, possible left heart catheterization tomorrow. We will check stool occult blood, anemia workup. Transfuse as needed. Discussed with the patient. REVIEW OF SYSTEMS CONSTITUTIONAL: Denies fevers, chills, or night sweats. No unintentional weight loss reported. NEUROLOGICAL: Denies headache, amaurosis fugax, motor weakness, sensory deficit, vertigo/spinning sensation, gait abnormalities, or tremors. ENT: No hearing loss, otalgia, otorrhea, rhinitis, rhinorrhea, hoarseness, or sore throat. CARDIOVASCULAR: Complain of midsternal chest pain that radiates to neck Denies orthopnea, paroxysmal nocturnal dyspnea, palpitations, life-threatening arrhythmias, claudication. PULMONARY: Complain of shortness of breaths on exertion Denies cough, phlegm/sputum, hemoptysis, pleuritic chest pain. SLEEP: Denies morning headaches, daytime somnolence or napping. Denies difficulty falling asleep, staying asleep, waking from sleep. Denies knowledge of snoring. GASTROINTESTINAL: Complains of nausea and vomiting Denies any type of dysphagia to either liquids or solids. Denies pyrosis, early satiety, abdominal pain, diarrhea, constipation, or changes in stool consistency or caliber. Denies coffee-ground emesis, hematemesis, hematochezia, or melanotic stools. GENITOURINARY: Denies frequency, urgency, nocturia, hematuria or incontinence (Storage/Irritative symptoms.) Low urinary stream, straining to void, urinary intermittency or hesitancy, splitting of the voiding stream, terminal dribbling. ENDOCRINOLOGIC: Denies polyuria, polydipsia, polyphagia or heat/cold intolerances. HEMATOLOGIC: Denies thrombophilia/previous clots, or coagulopathy/bleeding disorders. ONCOLOGIC: Denies personal history of malignancy. DERMATOLOGIC: Denies rashes or pruritus. PSYCHIATRIC: Denies any suicidal or homicidal ideation. Denies hallucinations. PHYSICAL EXAM GENERAL APPEARANCE: The patient is awake, alert, and oriented, in no acute cardiopulmonary distress. NEUROLOGICAL: Cranial nerves II-XII grossly intact. Motor is 5/5 in bilateral upper and lower extremities proximal to distal. No sensory deficits. HEENT: Face is symmetric. Pupils are equal and reactive. Extraocular movements are intact. NECK: Supple. No JVD. No thyromegaly. No submental, submandibular, pre- /postauricular, occipital or supraclavicular lymphadenopathy. CHEST: Normal chest expansion. No Telemetry. LUNGS: Absence of any rales, rhonchi or any wheezing. CARDIOVASCULAR: Regular. S1 and S2 normal. No appreciable rubs, murmurs or gallops. ABDOMEN: Soft, nontender, and nondistended. There is no rebound, voluntary guarding, or rigidity. : Deferred. No Hammer. EXTREMITIES: Non-edematous and not cyanotic. No clubbing. Good capillary refill. SKIN: No skin breakdown. Vital Signs (last 8hr) Date Time Temp Pulse Resp B/P (MAP) Pulse Ox O2 Delivery O2 Flow Rate FiO2 08/05/25 11:50 97.5 74 18 128/72 100 Room Air 08/05/25 11:05 98 Room Air* 0 21 08/05/25 07:41 97.9 70 18 124/72 100 Room Air LABS: Laboratory: Test 08/05/25 04:08 08/04/25 17:45 Range/Units White Blood Count 5.6 4.8-10.8 K/uL Red Blood Count 3.96 L 4.00-5.50 MIL/uL Hemoglobin 11.6 L 12.0-16.0 g/dL Hematocrit 33.8 L 36-48 % Mean Corpuscular Volume 85.4 79-99 fL Mean Corpuscular Hemoglobin 29.3 27.0-33.0 pg Mean Corpuscular Hemoglobin Concent 34.3 32.0-36.0 g/dL Red Cell Distribution Width 13.2 11.0-15.5 % Platelet Count 244 130-400 K/uL Mean Platelet Volume 9.5 7.5-10.5 fL Immature Granulocyte % (Auto) 0.4 0-1 % Neutrophils (%) (Auto) 45.1 40.0-77.0 % Lymphocytes (%) (Auto) 37.8 21.0-51.0 % Monocytes (%) (Auto) 10.5 3.0-13.0 % Eosinophils (%) (Auto) 4.9 0.0-8.0 % Basophils (%) (Auto) 1.3 0.0-5.0 % Neutrophils # (Auto) 2.5 1.8-7.7 K/uL Lymphocytes # (Auto) 2.1 1.0-4.8 K/uL Monocytes # (Auto) 0.6 0.1-1.0 K/uL Eosinophils # (Auto) 0.27 0.00-0.70 K/uL Basophils # (Auto) 0.07 0.00-0.20 K/uL Absolute Immature Granulocyte (auto 0.02 0-1 K/uL Nucleated Red Blood Cells 0.0 0.0-0.19 % Erythrocyte Sedimentation Rate 5 0-30 MM/HR Sodium Level 141 136-145 mmol/L Potassium Level 3.7 3.5-5.1 mmol/L Chloride Level 107 101-111 mmol/L Carbon Dioxide Level 28 21-32 mmol/L Blood Urea Nitrogen 7 7-18 mg/dL Creatinine 0.7 0.5-1.0 mg/dL Glomerular Filtration Rate Calc 99 >90 mL/min Random Glucose 78 70-105 mg/dL Total Calcium 8.6 8.5-10.1 mg/dL Magnesium Level 2.00 1.80-2.40 mg/dL Total Bilirubin 0.9 0.2-1.0 mg/dL Aspartate Amino Transf (AST/SGOT) 18 10-37 U/L Alanine Aminotransferase (ALT/SGPT) 19 12-78 U/L Alkaline Phosphatase 84 50-136 U/L Total Creatine Kinase 39 # 21-232 U/L Troponin I High Sensitivity 5.4 4-50 ng/L Total Protein 5.7 L 6.0-8.3 g/dL Albumin 2.9 L 3.5-5.0 g/dL Triglycerides Level 58 30-200 mg/dL Cholesterol Level 104 <200 mg/dL LDL Cholesterol 41 0-99 mg/dL HDL Cholesterol 50 35-85 mg/dL Thyroid Stimulating Hormone (TSH) 0.18 L 0.36-3.74 uIU/mL Prothrombin Time 10.4 9.6-11.6 SEC Prothromb Time International Ratio 0.98 0.85-1.15 Activated Partial Thromboplast Time 25.0 L 26.3-35.5 SEC Hemoglobin A1c 5.5 4.0-6.0 % Estimated Average Glucose (eAG) 111 70-126 mg/dL B-Type Natriuretic Peptide 102 H 0-100 pg/mL Lipase 25 16-77 U/L Current Medications Medications (Trade) Dose Ordered Sig/Latasha Route PRN Reason Start Time Stop Time Status Last Admin Dose Admin Acetaminophen (TYLenol 325MG TAB) 650 mg Q4H PRN PO MILD PAIN (1-3) 08/04/25 21:30 09/03/25 21:29 Acetaminophen (TYLenol 325MG TAB) 650 mg Q6H PRN PO TEMPERATURE GREATER THAN 101.5 08/04/25 21:30 09/03/25 21:29 Albuterol Sulfate (Proventil 0.083% 2.5mg/3ml) 2.5 mg Q4HPRN PRN IH wheezing 08/05/25 09:00 09/04/25 08:59 08/05/25 11:49 2.5 MG Aspirin (Aspirin 81mg Ec Tab) 81 mg DAILY PO 08/05/25 09:00 09/04/25 08:59 08/05/25 08:35 81 MG Atorvastatin Calcium (LIPItor 40MG) 40 mg HS PO 08/05/25 21:00 09/04/25 20:59 Enoxaparin Sodium (Lovenox) 40 mg DAILY SQ 08/05/25 09:00 09/04/25 08:59 08/05/25 08:35 40 MG Lisinopril (Prinivil 10mg) 10 mg DAILY PO 08/05/25 09:00 09/04/25 08:59 08/05/25 12:19 10 MG Metoprolol Tartrate (loprESSOR) 25 mg BID PO 08/05/25 21:00 09/04/25 20:59 Montelukast Sodium (SinguLAIR) 10 mg DAILY PO 08/05/25 09:00 09/04/25 08:59 08/05/25 12:19 10 MG Morphine Sulfate (morPHINE 2MG SYG) 2 mg Q4H PRN IV MODERATE PAIN (4-6) 08/04/25 21:30 08/11/25 21:29 Nitroglycerin (Nitroglycerin 1gm Oint) 0.5 inch Q8H TD 08/04/25 21:30 09/03/25 21:29 08/05/25 06:27 0.5 INCH Ondansetron HCl (zoFRAN 4MG INJ) 4 mg Q6H PRN IV NAUSEA/VOMITING 08/04/25 21:30 09/03/25 21:29 Pantoprazole Sodium (PROTonix 40MG INJ) 40 mg DAILY IVP 08/05/25 09:00 09/04/25 08:59 08/05/25 08:35 40 MG Potassium Chloride 100 ml @ 100 mls/hr AD PRN IV POTASSIUM PROTOCOL 08/05/25 06:00 09/04/25 05:59 Potassium Chloride (K-Dur/Klor-Con 20meq) 20 meq AD PRN PO POTASSIUM PROTOCOL 08/05/25 06:00 09/04/25 05:59 08/05/25 06:28 20 MEQ Potassium Chloride (KCl 10% Elixir 20meq/15ml) 20 meq AD PRN PO POTASSIUM PROTOCOL 08/05/25 06:00 09/04/25 05:59 DIAGNOSTICS / RADIOLOGY: [ ] ASSESSMENT: Chest pain rule out ACS POA Coronary artery disease POA Hypertension POA Obesity POA Hyperlipidemia POA PLAN: NEURO: Minimize central acting medications as possible. Fall Precautions. Well lighted room through the day and minimize interruptions through the night to prevent acute delirium. PULMONARY: Supplemental 02 as needed BiPAP as necessary, for respiratory distress Titrate Fio2 to keep Spo2 > or = 90% DuoNebs and CPT as needed IS hourly while awake for pulmonary hygiene prn Out of bed to chair as tolerated Maintain aspiration precautions at all times CARDIOVASCULAR: Follow hemodynamics. Vital signs per facility protocol GI & NUTRITION: Continue nutritional support Aspirations precautions Prokinetic agents and laxatives as needed KIDNEYS & ELECTROLYTES: Strict monitoring of intake and output Daily weights Avoid nephrotoxic agents Monitor electrolytes and replace as needed Goal urine output of 30mL/hr or 0.5mL/kg/hr Medications to be dosed according to renal function. Avoid contrast if possible ENDOCRINE: Maintain blood glucose between 100-180 at all times. Insulin sliding scale for blood glucose management Hypoglycemia and hyperglycemia protocol in place INFECTIOUS DISEASE: Trend temperature, WBC and procalcitonin level Follow cultures, deescalate antibiotics as soon as possible. Panculture if new onset fever HEMATOLOGY & COAGULATION: Monitor H&H. Keep Hgb > 7 Transfuse 1 unit of PRBC for Hgb < 7 Transfuse 1 pack of platelets of platelets < 20, 000 Watch for any signs and symptoms of bleeding SKIN: Pressure ulcer prevention per facility protocol Specialty mattress as needed ORTHO/REHAB Continue PT/OT PRN: MEDICATIONS Tylenol 650 mg po every 4 hrs for fever zofran 4 mg IV every 6 hrs for n/v Hydralazine 5 mg IV every 4 hrs systolic pressure > 160 bowel regiment: lactulose 20 gm PO BID PRN constipation Supportive measures: Continue GI and DVT prophylaxis Disposition: Pending improvement in clinical condition All questions answered time spent: > 35 min PATRICIA ZHOU MD Aug 05, 2025 13:25
[2025-08-05 14:18] LABS: % IRON SATURATION 17.2 % (22-44); IRON, SERUM 52.0 mcg/dL (50-170)
--- NOTE | 2025-08-05 19:42 | NUR ---
Patient request to stop nebulize medication. Addendum: 08/05/25 at 1943 by NIKA BRYAN RT Amended: Links added.
--- NOTE | 2025-08-05 20:33 | HMCSR ---
APPROVED REPORT EXAM: Two-dimensional and M-mode echocardiogram with Doppler and color Doppler. INDICATION ICD: Chest Pain 2D Dimensions RVDd3.9 cmLVEF(%)43.8 (>50%)LVED Vol(simp.)101.0 mL IVSd0.7 (0.7-1.1cm)FS(%)22 %LVES Vol(simp.)43.0 mL LVDd5.4 (3.8-5.6cm)LA (2D)3.9 (1.6-4.0cm)LVEF(%, simp.)57 % PWd0.9 (0.7-1.1cm)Ao Root(2D)2.9 (2.0-3.7cm)LA ESV INDEX (BP)28.35 mL/m2 LVDs4.2 (2.5-4.0cm)LVOT diam2.2 (1.8-2.4cm) IVC diam1.2 cm Deformation Strain Apical 4-18.7 % Apical 2-18.5 % Apical 3-16.4 % Global Strain-17.9 % M-Mode Dimensions EPSS0.8 cm LA (MM)3.8 (1.6-4.0cm) Ao Root(MM)3.0 (2.0-3.7cm) Aortic Valve AoV Vmax2.0 m/Ana Peak GR15.5 mmHgLVOT Vmax1.2 m/s AoV VTI0.4 mAo Mean GR7.9 mmHgLVOT VTI0.24 m GITA (VMAX)2.34 cm2AVA (VTI) 2.3 cm2 Mitral Valve MV E Vmax83.9 cm/sDECEL Ktcn519 ms MV A Vmax79.3 cm/sP 1/2 T61 ms E/A ratio1.1MVA (PHT)3.6 cm2 TDI E/E' Habmpg15.9E/E' Zgqytps71.4 Medial E' Peak V7.72 cm/sLateral E' Peak V6.78 cm/s Pulmonary Valve PV Vmax1.3 m/sPV VTI0.27 mPV Mean GR4.2 mmHg PV Peak GR6.3 mmHg Left Ventricle The left ventricle is normal size. There is normal LV segmental wall motion. There is normal left deena tricular wall thickness. LVEF is 50-55%. The left ventricular diastolic function is normal. Right Ventricle The right ventricle is normal size. The right ventricular systolic function is normal. Atria The left atrium size is normal. The right atrium size is normal. Aortic Valve The aortic valve is normal in structure. No aortic regurgitation is present. There is no aortic valvu lar stenosis. Mitral Valve The mitral valve is normal in structure. There is no mitral valve regurgitation noted. There is no mi tral valve stenosis. Tricuspid Valve The tricuspid valve is normal in structure. There is no tricuspid valve regurgitation noted. Pulmonic Valve The pulmonary valve is normal in structure. There is no pulmonic valvular regurgitation. Great Vessels The aortic root is normal in size. The IVC is normal in size and collapses >50% with inspiration. Pericardium There is no pericardial effusion. Conclusion LVEF is 50-55%.
[2025-08-06] VITALS (14 sets, daily range): BP systolic 113–145; BP diastolic 56–89; PULSE 63–82; RESP 16–20; TEMP 97.6–98.1; O2SAT 96–97
--- NOTE | 2025-08-06 09:45 | PN ---
[facility] PROGRESS NOTE Date of Service: Aug 06, 2025 Time of Service: 09:43 SUBJECTIVE: 08/05 remains admitted to the PCU, no acute events overnight per discussion with the RN, alert oriented x3 at the time of my visit, BP 128/72, afebrile, saturating normal on room air. Hemoglobin today 11.6, hematocrit 33.8. Patient denies no overt GI bleed, no evidence of melena, no hematochezia, no hematemesis. Cardiac enzymes x4 negative. Discussed with Cardiology, possible left heart catheterization tomorrow. We will check stool occult blood, anemia workup. Transfuse as needed. Discussed with the patient. 08/06 patient remains admitted to the PCU, case discussed with the RN, no acute events overnight, patient alert oriented x3, BP 123/74, afebrile, she is saturating normal on room air. Patient currently NPO, scheduled for left heart catheterization today. REVIEW OF SYSTEMS CONSTITUTIONAL: Denies fevers, chills, or night sweats. No unintentional weight loss reported. NEUROLOGICAL: Denies headache, amaurosis fugax, motor weakness, sensory deficit, vertigo/spinning sensation, gait abnormalities, or tremors. ENT: No hearing loss, otalgia, otorrhea, rhinitis, rhinorrhea, hoarseness, or sore throat. CARDIOVASCULAR: Complain of midsternal chest pain that radiates to neck Denies orthopnea, paroxysmal nocturnal dyspnea, palpitations, life-threatening arrhythmias, claudication. PULMONARY: Complain of shortness of breaths on exertion Denies cough, phlegm/sputum, hemoptysis, pleuritic chest pain. SLEEP: Denies morning headaches, daytime somnolence or napping. Denies difficulty falling asleep, staying asleep, waking from sleep. Denies knowledge of snoring. GASTROINTESTINAL: Complains of nausea and vomiting Denies any type of dysphagia to either liquids or solids. Denies pyrosis, early satiety, abdominal pain, diarrhea, constipation, or changes in stool consistency or caliber. Denies coffee-ground emesis, hematemesis, hematochezia, or melanotic stools. GENITOURINARY: Denies frequency, urgency, nocturia, hematuria or incontinence (Storage/Irritative symptoms.) Low urinary stream, straining to void, urinary intermittency or hesitancy, splitting of the voiding stream, terminal dribbling. ENDOCRINOLOGIC: Denies polyuria, polydipsia, polyphagia or heat/cold intolerances. HEMATOLOGIC: Denies thrombophilia/previous clots, or coagulopathy/bleeding disorders. ONCOLOGIC: Denies personal history of malignancy. DERMATOLOGIC: Denies rashes or pruritus. PSYCHIATRIC: Denies any suicidal or homicidal ideation. Denies hallucinations. PHYSICAL EXAM GENERAL APPEARANCE: The patient is awake, alert, and oriented, in no acute car diopulmonary distress. NEUROLOGICAL: Cranial nerves II-XII grossly intact. Motor is 5/5 in bilateral upper and lower extremities proximal to distal. No sensory deficits. HEENT: Face is symmetric. Pupils are equal and reactive. Extraocular movements are intact. NECK: Supple. No JVD. No thyromegaly. No submental, submandibular, pre- /postauricular, occipital or supraclavicular lymphadenopathy. CHEST: Normal chest expansion. No Telemetry. LUNGS: Absence of any rales, rhonchi or any wheezing. CARDIOVASCULAR: Regular. S1 and S2 normal. No appreciable rubs, murmurs or gallops. ABDOMEN: Soft, nontender, and nondistended. There is no rebound, voluntary guarding, or rigidity. : Deferred. No Hammer. EXTREMITIES: Non-edematous and not cyanotic. No clubbing. Good capillary refill. SKIN: No skin breakdown. Vital Signs (last 8hr) Date Time Temp Pulse Resp B/P (MAP) Pulse Ox O2 Delivery O2 Flow Rate FiO2 08/06/25 08:19 97.5 66 16 123/74 97 Room Air 08/06/25 07:28 63 18 N/A Room Air 21 08/06/25 04:00 98.1 64 18 118/72 95 Room Air LABS: Laboratory: Test 08/05/25 13:43 08/05/25 04:08 08/04/25 17:45 Range/Units Iron Level 52 50-170 mcg/dL Total Iron Binding Capacity 301 250-450 mcg/dL Percent Iron Saturation 17.2 L 22-44 % White Blood Count 5.6 4.8-10.8 K/uL Red Blood Count 3.96 L 4.00-5.50 MIL/uL Hemoglobin 11.6 L 12.0-16.0 g/dL Hematocrit 33.8 L 36-48 % Mean Corpuscular Volume 85.4 79-99 fL Mean Corpuscular Hemoglobin 29.3 27.0-33.0 pg Mean Corpuscular Hemoglobin Concent 34.3 32.0-36.0 g/dL Red Cell Distribution Width 13.2 11.0-15.5 % Platelet Count 244 130-400 K/uL Mean Platelet Volume 9.5 7.5-10.5 fL Immature Granulocyte % (Auto) 0.4 0-1 % Neutrophils (%) (Auto) 45.1 40.0-77.0 % Lymphocytes (%) (Auto) 37.8 21.0-51.0 % Monocytes (%) (Auto) 10.5 3.0-13.0 % Eosinophils (%) (Auto) 4.9 0.0-8.0 % Basophils (%) (Auto) 1.3 0.0-5.0 % Neutrophils # (Auto) 2.5 1.8-7.7 K/uL Lymphocytes # (Auto) 2.1 1.0-4.8 K/uL Monocytes # (Auto) 0.6 0.1-1.0 K/uL Eosinophils # (Auto) 0.27 0.00-0.70 K/uL Basophils # (Auto) 0.07 0.00-0.20 K/uL Absolute Immature Granulocyte (auto 0.02 0-1 K/uL Nucleated Red Blood Cells 0.0 0.0-0.19 % Erythrocyte Sedimentation Rate 5 0-30 MM/HR Sodium Level 141 136-145 mmol/L Potassium Level 3.7 3.5-5.1 mmol/L Chloride Level 107 101-111 mmol/L Carbon Dioxide Level 28 21-32 mmol/L Blood Urea Nitrogen 7 7-18 mg/dL Creatinine 0.7 0.5-1.0 mg/dL Glomerular Filtration Rate Calc 99 >90 mL/min Random Glucose 78 70-105 mg/dL Total Calcium 8.6 8.5-10.1 mg/dL Magnesium Level 2.00 1.80-2.40 mg/dL Total Bilirubin 0.9 0.2-1.0 mg/dL Aspartate Amino Transf (AST/SGOT) 18 10-37 U/L Alanine Aminotransferase (ALT/SGPT) 19 12-78 U/L Alkaline Phosphatase 84 50-136 U/L Total Creatine Kinase 39 # 21-232 U/L Troponin I High Sensitivity 5.4 4-50 ng/L Total Protein 5.7 L 6.0-8.3 g/dL Albumin 2.9 L 3.5-5.0 g/dL Triglycerides Level 58 30-200 mg/dL Cholesterol Level 104 <200 mg/dL LDL Cholesterol 41 0-99 mg/dL HDL Cholesterol 50 35-85 mg/dL Thyroid Stimulating Hormone (TSH) 0.18 L 0.36-3.74 uIU/mL Prothrombin Time 10.4 9.6-11.6 SEC Prothromb Time International Ratio 0.98 0.85-1.15 Activated Partial Thromboplast Time 25.0 L 26.3-35.5 SEC Hemoglobin A1c 5.5 4.0-6.0 % Estimated Average Glucose (eAG) 111 70-126 mg/dL B-Type Natriuretic Peptide 102 H 0-100 pg/mL Lipase 25 16-77 U/L Current Medications Medications (Trade) Dose Ordered Sig/Latasha Route PRN Reason Start Time Stop Time Status Last Admin Dose Admin Acetaminophen (TYLenol 325MG TAB) 650 mg Q4H PRN PO MILD PAIN (1-3) 08/04/25 21:30 09/03/25 21:29 08/06/25 00:31 650 MG Acetaminophen (TYLenol 325MG TAB) 650 mg Q6H PRN PO TEMPERATURE GREATER THAN 101.5 08/04/25 21:30 09/03/25 21:29 Albuterol Sulfate (Proventil 0.083% 2.5mg/3ml) 2.5 mg Q4HPRN PRN IH wheezing 08/05/25 09:00 09/04/25 08:59 08/05/25 23:23 2.5 MG Aspirin (Aspirin 81mg Ec Tab) 81 mg DAILY PO 08/05/25 09:00 09/04/25 08:59 08/05/25 08:35 81 MG Atorvastatin Calcium (LIPItor 40MG) 40 mg HS PO 08/05/25 21:00 09/04/25 20:59 08/05/25 20:56 40 MG Enoxaparin Sodium (Lovenox) 40 mg DAILY SQ 08/05/25 09:00 09/04/25 08:59 08/05/25 08:35 40 MG Lisinopril (Prinivil 10mg) 10 mg DAILY PO 08/05/25 09:00 09/04/25 08:59 08/05/25 12:19 10 MG Metoprolol Tartrate (loprESSOR) 25 mg BID PO 08/05/25 21:00 09/04/25 20:59 08/05/25 20:55 25 MG Montelukast Sodium (SinguLAIR) 10 mg DAILY PO 08/05/25 09:00 09/04/25 08:59 08/05/25 12:19 10 MG Morphine Sulfate (morPHINE 2MG SYG) 2 mg Q4H PRN IV MODERATE PAIN (4-6) 08/04/25 21:30 08/11/25 21:29 Nitroglycerin (Nitroglycerin 1gm Oint) 0.5 inch Q8H TD 08/04/25 21:30 09/03/25 21:29 08/06/25 05:44 0.5 INCH Ondansetron HCl (zoFRAN 4MG INJ) 4 mg Q6H PRN IV NAUSEA/VOMITING 08/04/25 21:30 09/03/25 21:29 Pantoprazole Sodium (PROTonix 40MG INJ) 40 mg DAILY IVP 08/05/25 09:00 09/04/25 08:59 08/05/25 08:35 40 MG Potassium Chloride 100 ml @ 100 mls/hr AD PRN IV POTASSIUM PROTOCOL 08/05/25 06:00 09/04/25 05:59 Potassium Chloride (K-Dur/Klor-Con 20meq) 20 meq AD PRN PO POTASSIUM PROTOCOL 08/05/25 06:00 09/04/25 05:59 08/05/25 06:28 20 MEQ Potassium Chloride (KCl 10% Elixir 20meq/15ml) 20 meq AD PRN PO POTASSIUM PROTOCOL 08/05/25 06:00 09/04/25 05:59 DIAGNOSTICS / RADIOLOGY: [ ] ASSESSMENT: Chest pain rule out ACS POA Coronary artery disease POA Hypertension POA Obesity POA Hyperlipidemia POA PLAN: Patient currently NPO, scheduled for left heart catheterization today. NEURO: Minimize central acting medications as possible. Fall Precautions. Well lighted room through the day and minimize interruptions through the night to prevent acute delirium. PULMONARY: Supplemental 02 as needed BiPAP as necessary, for respiratory distress Titrate Fio2 to keep Spo2 > or = 90% DuoNebs and CPT as needed IS hourly while awake for pulmonary hygiene prn Out of bed to chair as tolerated Maintain aspiration precautions at all times CARDIOVASCULAR: Follow hemodynamics. Vital signs per facility protocol GI & NUTRITION: Continue nutritional support Aspirations precautions Prokinetic agents and laxatives as needed KIDNEYS & ELECTROLYTES: Strict monitoring of intake and output Daily weights Avoid nephrotoxic agents Monitor electrolytes and replace as needed Goal urine output of 30mL/hr or 0.5mL/kg/hr Medications to be dosed according to renal function. Avoid contrast if possible ENDOCRINE: Maintain blood glucose between 100-180 at all times. Insulin sliding scale for blood glucose management Hypoglycemia and hyperglycemia protocol in place INFECTIOUS DISEASE: Trend temperature, WBC and procalcitonin level Follow cultures, deescalate antibiotics as soon as possible. Panculture if new onset fever HEMATOLOGY & COAGULATION: Monitor H&H. Keep Hgb > 7 Transfuse 1 unit of PRBC for Hgb < 7 Transfuse 1 pack of platelets of platelets < 20, 000 Watch for any signs and symptoms of bleeding SKIN: Pressure ulcer prevention per facility protocol Specialty mattress as needed ORTHO/REHAB Continue PT/OT PRN: MEDICATIONS Tylenol 650 mg po every 4 hrs for fever zofran 4 mg IV every 6 hrs for n/v Hydralazine 5 mg IV every 4 hrs systolic pressure > 160 bowel regiment: lactulose 20 gm PO BID PRN constipation Supportive measures: Continue GI and DVT prophylaxis Disposition: Pending improvement in clinical condition All questions answered time spent: > 35 min PATRICIA ZHOU MD Aug 06, 2025 09:45
[2025-08-06] MEDS ORDERED: ATOR40TA69 PO (09:48)
[2025-08-06 10:22] LABS: NUCLEATED RED BLOOD CELLS 0.0 % (0.0-0.19); PLATELET COUNT (AUTO) 236.0 K/uL (130-400); RED BLOOD CELL COUNT(AUTO) 4.24 MIL/uL (4.00-5.50); RED CELL DISTRIBUTION WIDTH 13.2 % (11.0-15.5); WHITE BLOOD COUNT (AUTO) 5.8 K/uL (4.8-10.8)
--- NOTE | 2025-08-06 12:15 | NUR ---
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
[2025-08-06] MEDS ORDERED: VERAPAMIL HCL 2.5 MG/ML VIAL ONE (12:18)
[2025-08-06] MEDS ORDERED: HEParin-NS 1,000 UNIT/500 ML 1,000 ML IV ONE (12:18)
[2025-08-06] MEDS ORDERED: LIDOCAINE HCL 400MG/20ML VIAL ONE (12:18)
[2025-08-06] MEDS ORDERED: IOHEXOL 350 MG/ML 100ML INFUS..BTL IV ONE (12:18)
[2025-08-06] MEDS ORDERED: NITROGLYCERIN 50MG VIAL ONE (12:19)
[2025-08-06] MEDS ORDERED: MIDAZOLAM HCL 1 MG/ML 2ML VIAL ONE ×2 (12:44→13:00)
[2025-08-06] MEDS ORDERED: GLUCAGON 1MG KIT 1 MG ML IM PRN (13:30)
[2025-08-06] MEDS ORDERED: DEXTROSE 50%-WATER 50 ML DISP.SYRIN IV PRN (13:30)
--- NOTE | 2025-08-06 13:34 | PRN ---
PROCEDURE REPORT DATE OF PROCEDURE: Aug 06, 2025 RAND CEMENTER: [ Salomon Goyal MD] PROCEDURE PERFORMED: Conscious sedation Ultrasound guided right radial artery access Selective left coronary artery angiogram Selective right coronary artery angiogram Left heart catheterization TR band 13 jason over right radial artery INDICATION: Abnormal CTA DESCRIPTION OF PROCEDURE: After informed consent was obtained, the patient was prepped and draped in the usual sterile fashion. A 6 Azerbaijani arterial sheath was inserted in the right radial artery using ultrasound guidance with first pass wall puncture. The arterial sheath was aspirated and flushed. A 6 Azerbaijani JL 3.5 was then advanced to the ascending aorta over an exchange length J-tip guidewire, was aspirated and flushed, and was used for selective coronary angiograms in multiple obliquities. A JR-4 was advanced in a similar fashion to the ascending aorta over the J-tipped guidewire and was used for selective right coronary angiograms in multiple oblique views with findings as outlined below. The JR-4 catheter advanced into the LV and pressures were obtained with a pull-back across the aortic valve. A TR band was placed over right radial artery. FLUOROSCOPY TIME: 2.6 min LEFT HEART HEMODYNAMICS: LVEDP 10 mm Hg and no gradient Ao CORONARY ANGIOGRAM: LEFT MAIN: Patent and 0% stenosis. Gives rise to LCx and LAD. LEFT ANTERIOR DESCENDING: Large vessel giving rise to two Diagonal branches. There ostial 40-50% LAD stenosis just before the first septal artery with JOSÉ MIGUEL 3 flow. LEFT CIRCUMFLEX: Large and gives rise to two OM branches. 0% stenosis. RIGHT CORONARY ARTERY: Large, dominant vessel giving rise to PDA and PL branches. 20-30% proximal stenosis. HEMOSTASIS: TR band 12 jason over right radial artery INTERVENTIONS: None. COMPLICATIONS: None FINDINGS: Normal coronary anatomy and mild-moderate non-obstructive CAD. ESTIMATED BLOOD LOSS: 5 cc RECOMMENDATIONS/INSTRUCTIONS: Aggressive risk factor modification. CONTRAST DELIVERED TO PATIENT (mL): 70cc MD ABEBE Landry JAMES R MD Aug 06, 2025 13:34
--- NOTE | 2025-08-06 13:45 | NUR ---
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 APPEARS COMFORTABLE. RIGHT RADIAL BAND ON WITH 8MLS AIR, PLACED AT 1:18PM. RIGHT RADIAL PULSE STRONG, CAPILLARY REFILL GOOD, O2 SAT 96%.
[2025-08-06] MEDS: 0.9%NACL 1000ML 1,000 ML IV SCH (13:47)
--- NOTE | 2025-08-06 14:31 | PN ---
[facility] CARDIOLOGY PROGRESS NOTE Date Patient Seen: Aug 06, 2025 Time of Visit: 14:29 Interval History: [ s/p left heart cath] Physical Examination: GENERAL: [No acute distress.] HEAD: [Normal with no signs of head trauma.] EYES: [PERRLA, EOMI, conjunctiva and sclera normal.] ENT: [Hearing grossly intact, normal oropharynx.] NECK: [Supple without JVD. There is no tenderness, lymphadenopathy, or masses. No thyromegaly. Normal carotid upstrokes without bruits.] LUNGS: [Clear breath sounds bilaterally. There are right basilar rales one third of the way up the chest. No wheezes, or rhonchi.] HEART: [Normal rate and rhythm. Normal S1 and S2 without mumurs, gallop or rub.] VASC: [Peripheral pulses +2 bilaterally.] ABD: [Bowel sounds normal, soft, nontender, no masses, no organomegaly. No audible bruits.] : [Not examined] LYMPH: [No lymphadenopathy noted.] EXT: [No clubbing, cyanosis or edema.] SKIN: [No rashes or lesions noted.] NEURO: [Awake, alert, and oriented x3. No focal sensory or strength deficits noted.] Laboratory: [ ] Hematology Labs: Test 08/06/25 10:17 08/05/25 04:08 Range/Units White Blood Count 5.8 4.8-10.8 K/uL Red Blood Count 4.24 4.00-5.50 MIL/uL Hemoglobin 12.3 12.0-16.0 g/dL Hematocrit 37.1 36-48 % Mean Corpuscular Volume 87.5 79-99 fL Mean Corpuscular Hemoglobin 29.0 27.0-33.0 pg Mean Corpuscular Hemoglobin Concent 33.2 32.0-36.0 g/dL Red Cell Distribution Width 13.2 11.0-15.5 % Platelet Count 236 130-400 K/uL Mean Platelet Volume 8.8 7.5-10.5 fL Nucleated Red Blood Cells 0.0 0.0-0.19 % Immature Granulocyte % (Auto) 0.4 0-1 % Neutrophils (%) (Auto) 45.1 40.0-77.0 % Lymphocytes (%) (Auto) 37.8 21.0-51.0 % Monocytes (%) (Auto) 10.5 3.0-13.0 % Eosinophils (%) (Auto) 4.9 0.0-8.0 % Basophils (%) (Auto) 1.3 0.0-5.0 % Neutrophils # (Auto) 2.5 1.8-7.7 K/uL Lymphocytes # (Auto) 2.1 1.0-4.8 K/uL Monocytes # (Auto) 0.6 0.1-1.0 K/uL Eosinophils # (Auto) 0.27 0.00-0.70 K/uL Basophils # (Auto) 0.07 0.00-0.20 K/uL Absolute Immature Granulocyte (auto 0.02 0-1 K/uL Erythrocyte Sedimentation Rate 5 0-30 MM/HR Chemistry Labs: Test 08/05/25 13:43 08/05/25 04:08 08/04/25 17:45 Range/Units Iron Level 52 50-170 mcg/dL Total Iron Binding Capacity 301 250-450 mcg/dL Percent Iron Saturation 17.2 L 22-44 % Sodium Level 141 136-145 mmol/L Potassium Level 3.7 3.5-5.1 mmol/L Chloride Level 107 101-111 mmol/L Carbon Dioxide Level 28 21-32 mmol/L Blood Urea Nitrogen 7 7-18 mg/dL Creatinine 0.7 0.5-1.0 mg/dL Glomerular Filtration Rate Calc 99 >90 mL/min Random Glucose 78 70-105 mg/dL Total Calcium 8.6 8.5-10.1 mg/dL Magnesium Level 2.00 1.80-2.40 mg/dL Total Bilirubin 0.9 0.2-1.0 mg/dL Aspartate Amino Transf (AST/SGOT) 18 10-37 U/L Alanine Aminotransferase (ALT/SGPT) 19 12-78 U/L Alkaline Phosphatase 84 50-136 U/L Total Creatine Kinase 39 # 21-232 U/L Troponin I High Sensitivity 5.4 4-50 ng/L Total Protein 5.7 L 6.0-8.3 g/dL Albumin 2.9 L 3.5-5.0 g/dL Triglycerides Level 58 30-200 mg/dL Cholesterol Level 104 <200 mg/dL LDL Cholesterol 41 0-99 mg/dL HDL Cholesterol 50 35-85 mg/dL Thyroid Stimulating Hormone (TSH) 0.18 L 0.36-3.74 uIU/mL Hemoglobin A1c 5.5 4.0-6.0 % Estimated Average Glucose (eAG) 111 70-126 mg/dL B-Type Natriuretic Peptide 102 H 0-100 pg/mL Lipase 25 16-77 U/L Coagulation Labs: Test 08/04/25 17:45 Range/Units Prothrombin Time 10.4 9.6-11.6 SEC Prothromb Time International Ratio 0.98 0.85-1.15 Activated Partial Thromboplast Time 25.0 L 26.3-35.5 SEC Diagnostics / Radiology: [Copy/Paste Echos/Imaging Report here] Impression and Plan: [Unstable angina Hypertension Hyperlipidemia DM type 2 Chronic RBBB CCTA on 05/14/2025 revealed proximal LAD with 80-90% stenosis and 30-40% stenosis in the proximal D1 Asthma Unstable angina Cardiac enzymes negative x4 EKG demonstrated normal sinus rhythm with a heart rate of 76bpm, RBBB, and LAFB, no acute ischemia noted. -Continue aspirin 81 mg daily, atorvastatin 40 mg nightly, and lisinopril 10 mg daily -Start Lopressor 25mg bid -2d echo normal LVEF, no valvular pathology -LCH with 40-50% ostial LAD stenosis, 20-30% proximal RCA Teresa Goyal MD ] TERESA GOYAL MD Aug 06, 2025 14:31
--- NOTE | 2025-08-06 19:45 | NUR ---
GIVEN DISMISSAL INSTRUCTIONS, VERBALIZED UNDERSTANDING. REMOVED SALINE LOCK FROM RIGHT FOREARM, IV SITE WITHOUT REDNESS NOTED. REMOVED TELE PACK. TAKEN TO PRIVATE CAR ALONG WITH PERSONAL BELONGINGS BY GREGG HOOD.
[2025-08-07] MEDS ORDERED: METO25TA6 PO (09:20)
[2025-08-07] MEDS ORDERED: NITR0.4T50 SL (09:23)
--- NOTE | 2025-08-07 09:23 | DS ---
Discharge Summary Hospital Course Summary: Date of service 08/06/2025 The patient admitted to the hospital 08/04/2025 with the following history of the present illness: This is a 59-year-old female with past medical history of hypertension, diabetes, hyperlipidemia, asthma and coronary artery disease who presents to the ED for complaints of chest pain located around midsternal chest pain was described as sharp and burning sensation started Saturday and was exacerbated by activity associated with diaphoresis,mild shortness of breath and nausea and vomiting.Patient states she had been seen by a data warehouse manager and had a cardiac work up and was told she has a 90% blockage on her LAD and the plan was to do a cardiac catheterization this coming Saturday.Patient reports she had been having on and off chest pain for the past 2 months and reason why she was referred by her PCP to a cardio and last Saturday it came back back and since then she has been having chest pain and radiates towards her neck so she decided to come to the ED because her mother and 3 brothers dis of a heart attack.Patient states her data warehouse manager is Dr.Danielle kitchen and the data warehouse manager that would do the cath will be Dr.James kitchen she said.Patient denies fever,palpitation ,abdominal pain and diarrhea. Vital signs upon ER arrival temperature 97.9, heart rate 68, blood pressure 138/78, saturation 98% on room air. Labs: CBC and chemistry are unremarkable. Troponin four x 3. ECG result revealed sinus rhythm heart rate 76 with right bundle branch block and left anterior fascicular block. Chest x-ray result revealed no acute pulmonary findings. While in the ER patient received aspirin 325 mg p.o., nitroglycerin 1 in topical, Protonix 40 mg IV. We will admit patient for further medical management. HOSPITAL COURSE 08/05 remains admitted to the PCU, no acute events overnight per discussion with the RN, alert oriented x3 at the time of my visit, BP 128/72, afebrile, saturating normal on room air. Hemoglobin today 11.6, hematocrit 33.8. Patient denies no overt GI bleed, no evidence of melena, no hematochezia, no hematemesis. Cardiac enzymes x4 negative. Discussed with Cardiology, possible left heart catheterization tomorrow. We will check stool occult blood, anemia workup. Transfuse as needed. Discussed with the patient. 08/06 patient remains admitted to the PCU, case discussed with the RN, no acute events overnight, patient alert oriented x3, BP 123/74, afebrile, she is saturating normal on room air. Patient currently NPO, scheduled for left heart catheterization today. Patient underwent successful left heart catheterization, with a 40-50% ostial LAD stenosis, 20 x 30% proximal RCA, from cardiac standpoint patient can be discharged home, continue aspirin 81 mg p.o. daily, atorvastatin 40 mg p.o. HS, lisinopril 10 mg p.o. daily, start Lopressor 25 mg p.o. b.i.d.. Fountain Clerk(s): Cardiology Procedure(s): -LCH with 40-50% ostial LAD stenosis, 20-30% proximal RCA done 08/06/2025 Assessment/Plan: Final diagnosis Unstable angina, POA Coronary artery disease POA Hypertension POA Obesity POA Hyperlipidemia POA Chronic RBBB CCTA on 05/14/2025 revealed proximal LAD with 80-90% stenosis and 30-40% stenosis in the proximal D1 Asthma Discharge Instructions: Patient to follow up with PCP as an outpatient as well as with data warehouse manager, return to hospital if condition changes. Patient agreed with plan and understood the information provided. Home Medications: Active Scripts Atorvastatin Calcium (LIPITOR) 40 Mg Tablet, 40 MG PO HS for 30 Days, #30 TAB 1 Refill Prov:PATRICIA ZHOU MD 08/06/25 Reported Medications Albuterol Sulfate (Ventolin Hfa) 90 Mcg Hfa.aer.ad, 2 PUFF IH Q4HPRN PRN for wheezing for 30 Days, #18 GM 0 Refills 08/05/25 Budesonide/Formoterol Fumarate (Symbicort 160-4.5 Mcg Inhaler) 160 Mcg-4.5 Mcg/Actuation Hfa.aer.ad, 1 PUFF IH BID, GM 0 Refills 08/05/25 Cholecalciferol (Vitamin D3) 1,250 Mcg (65105 Unit) Cap, 80354 UNITS PO QWEEK, CAP 08/05/25 Aspirin (Aspirin EC) 81 Mg Tablet.dr, 81 MG PO DAILY, TAB 08/05/25 Lisinopril (Lisinopril) 10 Mg Tablet, 10 MG PO DAILY, TAB 08/05/25 Pantoprazole Sodium (Pantoprazole Sodium) 40 Mg Tablet.dr, 40 MG PO DAILY, TAB 08/05/25 Tirzepatide (Mounjaro) 15 Mg/0.5 Ml Pen.injctr, 15 MG SQ QWEEK 08/05/25 Montelukast Sodium (Singulair) 10 Mg Tablet, 10 MG PO DAILY, TAB 08/05/25 Discontinued Reported Medications Atorvastatin Calcium (Atorvastatin Calcium) 20 Mg Tablet, 20 MG PO HS, TAB 08/05/25 Time spent arranging discharge: 31-60 minutes PATRICIA ZHOU MD Aug 07, 2025 09:23
== END 2025-08-06 19:50 | disposition home or self-care (01) | DRG 191 ==
LOC: EDH 17:20 → EDHIP 17:21 → 2AH 23:34
PROVIDERS: ADMIT Internal Medicine; ATTEND Internal Medicine
PROC: 4A023N7 Measurement of Cardiac Sampling and Pressure, Left Heart, Percutaneous Approach (ICD-10-PCS; principal; 2025-08-06)
PROC: B2111ZZ Fluoroscopy of Multiple Coronary Arteries using Low Osmolar Contrast (ICD-10-PCS; 2025-08-06)
DX: I25.110 Atherosclerotic heart disease of native coronary artery with unstable angina pectoris (principal); E11.9 Type 2 diabetes mellitus without complications; I45.2 Bifascicular block; E66.9 Obesity, unspecified; I10 Essential (primary) hypertension; Z68.38 Body mass index [BMI] 38.0-38.9, adult; J45.909 Unspecified asthma, uncomplicated; E78.00 Pure hypercholesterolemia, unspecified; Z79.51 Long term (current) use of inhaled steroids; Z79.82 Long term (current) use of aspirin; Z79.85 Long-term (current) use of injectable non-insulin antidiabetic drugs; Z79.899 Other long term (current) drug therapy; Z82.49 Family history of ischemic heart disease and other diseases of the circulatory system; Z90.710 Acquired absence of both cervix and uterus; Z83.3 Family history of diabetes mellitus; Z98.84 Bariatric surgery status; Z98.891 History of uterine scar from previous surgery; Z90.49 Acquired absence of other specified parts of digestive tract
CPT/HCPCS: 36415; 71045; 80048; 80053; 80061; 82550; 83036; 83540; 83550; 83690; 83735; 83880; 84443; 84484; 85025; 85027; 85610; 85651; 85730; 93005; 93306; 93356; 93458; 94640; 96374; 99156; 99157; 99285; C1769; G0378; J1644; J1650; J2250; J2470; J3010; J3490; Q9967; A4649; C1894; Q9965